=== PATIENT | female | born 1940 | race Caucasian/White ===

== ENCOUNTER 2016-07-20 09:52 | Emergency (ER) | payer OTHER ==
[2016-07-20 10:25] VITALS: BMI 33.6
--- NOTE | 2016-07-20 10:36 | PDOC ---
History of Present Illness - General History Source: Patient, Family (Daughter) Exam Limitations: No Limitations - History of Present Illness Initial Comments: 07/20/16 11:53 The patient is a 75 year old female with significant past medical history of anemia, hypertension, diabetes, gallbladder and liver CA who presents to the emergency department accompanied by her daughter for a blood transfusion. As per daughter, the patient has been receiving blood transfusions for the last 6 weeks approximately 1-2x a week. The patients last blood transfusion was at [facility] [place] on Sunday07/12/16. The patient is not complaining of any pain. The patient was supposed to be started on hospice today at 12:30pm. The patient denies any fevers or chills. <Akila Harris - Last Filed: 07/20/16 12:54> <Axel Bush - Last Filed: 07/20/16 13:03> - General Chief Complaint: Weakness Stated Complaint: Weakness Time Seen by Provider: 07/20/16 10:25 Past History <Akila Harris - Last Filed: 07/20/16 12:54> - Past Medical History Anemia: Yes Cancer: Yes (Liver & gallbladder) Diabetes: Yes HTN: Yes - Immunization History Immunization Up to Date: Yes - Psycho/Social/Smoking Cessation Hx Anxiety: No Suicidal Ideation: No Smoking History: Never smoked Have you smoked in the past 12 months: No Hx Alcohol Use: No Drug/Substance Use Hx: No Substance Use Type: None Hx Substance Use Treatment: No <Axle Bush - Last Filed: 07/20/16 13:03> - Past Medical History Allergies/Adverse Reactions: Allergies Allergy/AdvReac Type Severity Reaction Status Date / Time No Known Drug Allergies Allergy Verified 10/11/15 19:36 Home Medications: Ambulatory Orders Insulin Glargine,Hum.rec.anlog [Lantus Solostar PEN -] 30 ml SQ DAILY 01/11/15 Pantoprazole Sodium [Protonix] 40 mg PO DAILY #7 tablet. 01/12/15 Lipase/Protease/Amylase [Jerilyn Mayberry 36,000 Units Capsule] 1 each PO QID 09/17/15 Docusate Sodium 100 mg PO TID 07/20/16 Multivitamins [Tab-A-Vit -] 1 tab PO DAILY 07/20/16 Sennosides [Senna] 8.6 mg PO BID 07/20/16 Tramadol HCl 50 mg PO DAILY 07/20/16 Review of Systems - Review of Systems Able to Perform ROS?: Yes Comments:: 07/20/16 11:54 GENERAL/CONSTITUTIONAL: No fever or chills. No weakness. HEAD, EYES, EARS, NOSE AND THROAT: No change in vision. No ear pain or discharge. No sore throat. CARDIOVASCULAR: No chest pain or shortness of breath. RESPIRATORY: No cough, wheezing, or hemoptysis. GASTROINTESTINAL: No nausea, vomiting, diarrhea or constipation. GENITOURINARY: No dysuria, frequency, or change in urination. MUSCULOSKELETAL: No joint or muscle swelling or pain. No neck or back pain. SKIN: No rash NEUROLOGIC: No headache, vertigo, loss of consciousness, or change in strength/ sensation. ENDOCRINE: No increased thirst. No abnormal weight change. HEMATOLOGIC/LYMPHATIC: No anemia, easy bleeding, or history of blood clots. ALLERGIC/IMMUNOLOGIC: No hives or skin allergy. <Akila Harris - Last Filed: 07/20/16 12:54> *Physical Exam - Vital Signs Last Vital Signs Temp Pulse Resp BP Pulse Ox 99 H 18 102/64 97 07/20/16 10:23 07/20/16 10:23 07/20/16 10:23 07/20/16 11:04 - Physical Exam Comments: 07/20/16 11:54 GENERAL: Awake, alert, and fully oriented, in no acute distress. +Jaundice. HEAD: No signs of trauma EYES: PERRLA, EOMI, +scleral icterus, +periorbital edema. ENT: Auricles normal inspection, hearing grossly normal, nares patent, oropharynx clear without exudates. NECK: Normal ROM, supple, no lymphadenopathy, JVD, or masses LUNGS: Breath sounds equal, clear to auscultation bilaterally. No wheezes, and no crackles HEART: Regular rate and rhythm, normal S1 and S2, no murmurs, rubs or gallops ABDOMEN: +Ascites. Nontender, normoactive bowel sounds. No guarding, no rebound. EXTREMITIES: 1+ pitting edema in LE bilaterally. Normal range of motion. No clubbing or cyanosis. No cords, erythema, or tenderness NEUROLOGICAL: Cranial nerves II through XII grossly intact. Normal speech SKIN: Warm, Dry, normal turgor, no rashes or lesions noted. <Akila Harris - Last Filed: 07/20/16 12:54> - Vital Signs Last Vital Signs Temp Pulse Resp BP Pulse Ox 99 H 18 102/64 99 07/20/16 10:23 07/20/16 10:23 07/20/16 10:23 07/20/16 10:23 <Axel Bush - Last Filed: 07/20/16 13:03> ED Treatment Course - LABORATORY CBC & Chemistry Diagram: 07/20/16 11:00 07/20/16 11:00 - ADDITIONAL ORDERS Additional order review: Laboratory Results 07/20/16 11:00 Crossmatch See Detail 07/20/16 11:00 Neutrophils % Y Lymphocytes % Y <Akila Harris - Last Filed: 07/20/16 12:54> - LABORATORY CBC & Chemistry Diagram: 07/20/16 11:00 07/20/16 11:00 - RADIOLOGY Radiology Studies Ordered: Category Date Time Status CHEST X-RAY PORTABLE* [RAD] Stat Radiology 07/20/16 10:28 Ordered <Axel Bush - Last Filed: 07/20/16 13:03> Medical Decision Making - Medical Decision Making 07/20/16 11:30 75 yo F with liver and gallbladder CA. Patient was supposed to be set up with hospice today around 12:30pm. Patient is here today for a blood transfusion as she has been getting blood for the last 6 weeks. 07/20/16 11:54 Dr. Bush had a long detailed discussion with patient and patient's daughter discussing her current condition and further treatment. Patient consented to and signed a DNR/DNI. Daughter was upset and consoled by Dr. Bush. All of their questions were answered. 07/20/16 12:54 Patient is noted to be in multisystem organ failure. She is in liver failure and kidney failure and there is nothing to be done at this time. The patient and daughter would like to go home. The daughter wants to bring her mother back to [place]. Dr. Bush explained to the daughter that if she wants to go back to [place] she should go [place]ela. The daughter understands. <Akila Harris - Last Filed: 07/20/16 12:54> *DC/Admit/Observation/Transfer - Attestations Scribe Attestion: 07/20/16 11:21 Documentation prepared by Akila Harris, acting as medical record administrator for Axel Bush DO. <Akila Harris - Last Filed: 07/20/16 12:54> - Discharge Dispostion Admit: No - Attestations Physician Attestion: 07/20/16 10:36 I, Dr. Axel Bush, attest that this document has been prepared under my direction and personally reviewed by me in its entirety. I further attest, that it accurately reflects all work, treatment, procedures and medical decision -making performed by me. <Axel Bush - Last Filed: 07/20/16 13:03> Diagnosis at time of Disposition: Multiple organ failure, Admission for end of life care, Malignant neoplasm of gallbladder - Discharge Dispostion Disposition: HOME Condition at time of disposition: Unchanged/Unknown - Patient Instructions Additional Instructions: I am so sorry but Madeleine's time is running short............. If you want to take her to [place], go as soon as possible. My best and my prayers for you and your mom and this sad and challenging time.... Dr. Axel Bush
[2016-07-20 11:12] LABS: MCH 36.3 pg (25.7-33.7); MCHC 33.8 g/dl (32.0-36.0); MEAN CELL VOLUME 107.2 fl (80-96); MEAN PLT VOLUME 8.6 fl (7.5-11.1); PLATELET COUNT 176 K/MM3 (134-434); RDW 28.4 % (11.6-15.6)
[2016-07-20 11:15] LABS: WHITE BLOOD COUNT 33.6 K/mm3 (4.0-10.0)
[2016-07-20 11:26] LABS: INR 3.77 (0.82-1.09); PROTHROMBIN TIME (PATIENT) 42.6 SEC (9.98-11.88)
[2016-07-20 11:36] LABS: ALBUMIN 1.8 g/dl (3.4-5.0); CALCIUM 8.1 mg/dL (8.5-10.1); CREATININE 4.6 mg/dL (0.55-1.02)
[2016-07-20 11:48] LABS: TOT PROT 5.3 g/dl (6.4-8.2)
[2016-07-20 11:51] LABS: BILIRUBIN,TOTAL 45.8 mg/dL (0.2-1.0)
[2016-07-20 12:48] LABS: POLYCHROMASIA 1+
[2016-07-20 12:49] LABS: ANISOCYTOSIS 3+; PLATELET ESTIMATE ADEQUATE (NORMAL)
[2016-07-20 13:35] VITALS: BP 98/52; PULSE 108; TEMP 96.9
--- NOTE | 2016-07-20 16:03 | EKG ---
Test Reason : Blood Pressure : / mmHG Vent. Rate : 196 BPM Atrial Rate : 196 BPM P-R Int : 000 ms QRS Dur : 018 ms QT Int : 212 ms P-R-T Axes : 000 000 218 degrees QTc Int : 383 ms WIDE COMPLEX TACHYCARDIA ABNORMAL ECG Confirmed by KATJA BRADFORD MD ([id number]) on 07/20/2016 4:02:43 PM Referred By: Confirmed By:KATJA BRADFORD MD
== END 2016-07-20 13:35 | disposition home or self-care (01) ==
LOC: JER 09:52
DX: C23 Malignant neoplasm of gallbladder (principal); C22.9 Malignant neoplasm of liver, not specified as primary or secondary; K72.90 Hepatic failure, unspecified without coma; N17.8 Other acute kidney failure; Z51.5 Encounter for palliative care; I10 Essential (primary) hypertension; E11.9 Type 2 diabetes mellitus without complications; Z79.4 Long term (current) use of insulin
CPT/HCPCS: 36415; 71010-TC; 80053; 82140; 85025; 85610; 86850; 86900; 86901; 86922; 93005; 93010; 99285-25